=== PATIENT | male | born 1945 | race Caucasian/White ===

== ENCOUNTER → 2020-02-23 08:19 | Outpatient (CLI) | payer MEDICARE, OTHER, SELFPAY ==
[2020-02-23 10:35] LABS: Blood Urea Nitrogen 18 mg/dL (9-20); Calcium 9.3 mg/dL (8.4-10.2); Carbon Dioxide 28 mmol/L (22-32); Chloride 101 mmol/L (98-107); Cholesterol 245 mg/dL (140-199); Estimated Glomerular Filt Rate > 60.0 mL/min (>60); Glucose 234 mg/dL (80-110); HDL Cholesterol 36 mg/dL (40-60); Hemoglobin A1C% w Est Avg Glu 9.9 % (4.0-6.0); LDL Cholesterol Calculated 160 mg/dL (<100); Potassium 5.1 mmol/L (3.4-5.1); Sodium 136 mmol/L (137-145); Triglycerides 244 mg/dL (35-150)
[2020-02-23 10:41] LABS: HEMOLYSIS 56 (0-50)
== END ==
PROVIDERS: Family Provider Internal Medicine; PCP Internal Medicine; Referring Provider Internal Medicine; Visit Provider Internal Medicine
DX: E11.9 Type 2 diabetes mellitus without complications (principal); E66.9 Obesity, unspecified; E78.00 Pure hypercholesterolemia, unspecified
CPT/HCPCS: 36415; 80048; 80061; 83036

== ENCOUNTER → 2020-10-09 08:50 | Outpatient (CLI) | payer MEDICARE, OTHER, SELFPAY ==
[2020-10-09 09:49] LABS: Hemoglobin A1C% w Est Avg Glu 8.2 % (4.0-6.0)
[2020-10-09 10:07] LABS: BUN Creatinine Ratio 19.4 (6-22); Blood Urea Nitrogen 18 mg/dL (9-20); Calcium 9.3 mg/dL (8.4-10.2); Carbon Dioxide 30 mmol/L (22-32); Chloride 102 mmol/L (98-107); Estimated Glomerular Filt Rate > 60.0 mL/min (>60); Glucose 140 mg/dL (80-110); HEMOLYSIS < 15 (0-50); Potassium 4.8 mmol/L (3.4-5.1); Sodium 135 mmol/L (137-145)
== END ==
PROVIDERS: Family Provider Internal Medicine; PCP Internal Medicine; Referring Provider Internal Medicine; Visit Provider Internal Medicine
DX: E11.9 Type 2 diabetes mellitus without complications (principal); E66.9 Obesity, unspecified; E78.00 Pure hypercholesterolemia, unspecified
CPT/HCPCS: 36415; 80048; 83036

== ENCOUNTER → 2020-10-16 13:07 | Outpatient (CLI) | payer MEDICARE, OTHER, SELFPAY ==
--- NOTE | 2020-10-16 | DI.RAD.S_ITS ---
PROCEDURE: XR CHEST 2V INDICATIONS: COUGH TECHNIQUE: 2 views of the chest were acquired. COMPARISON: None. FINDINGS: Surgical changes and devices: None. Lungs and pleura: Lungs are clear. No pleural effusions or pneumothorax. Mediastinum: Mediastinal contours are normal. Heart size is normal. Bones and chest wall: No suspicious bony abnormalities. Soft tissues appear unremarkable. IMPRESSION: Normal for age. Source of cough is not found. Dictated by: Nile Joshi M.D. on 10/16/2020 at 13:40 Approved by: Nile Joshi M.D. on 10/16/2020 at 13:40
== END ==
PROVIDERS: Family Provider Internal Medicine; PCP Internal Medicine; Referring Provider Internal Medicine; Visit Provider Internal Medicine
DX: R05 Cough (principal)
CPT/HCPCS: 71046

== ENCOUNTER → 2023-03-18 12:21 | Outpatient (CLI) | payer MEDICARE, OTHER, SELFPAY ==
--- NOTE | 2023-03-18 12:23 | DI.RAD.S_ITS ---
PROCEDURE: XR ANKLE LT MIN 3V INDICATIONS: swelling, discomfort medial ankle no inj, diabetic TECHNIQUE: 3 views of the ankle were acquired. COMPARISON: [facility], CR, XR FOOT LT MIN 3V, 03/18/2023, 12:36. FINDINGS: Bones: There is a questionable fracture visualized on the AP and oblique views within the distal left fibula which does not appear to extend to the lateral cortex. No other fracture or dislocation. Soft tissues: No tibiotalar joint effusion. Achilles tendon appears normal. IMPRESSION: Questionable distal fibular fracture. If further characterization is warranted, CT of the ankle could be used. Dictated by: Terri Mendoza M.D. on 03/18/2023 at 13:08 Approved by: Terri Mendoza M.D. on 03/18/2023 at 13:11
--- NOTE | 2023-03-18 12:23 | DI.RAD.S_ITS ---
PROCEDURE: XR FOOT LT MIN 3V INDICATIONS: swelling, discomfort medial ankle no inj, diabetic TECHNIQUE: 3 views of the foot were acquired. COMPARISON: None. FINDINGS: Bones: No fractures or dislocations. No suspicious bony lesions. There is plantar spurring present. Soft tissues: No tibiotalar joint effusion. Achilles tendon appears normal. IMPRESSION: Degenerative change. No acute radiographic findings. Dictated by: Terri Mendoza M.D. on 03/18/2023 at 13:06 Approved by: Terri Mendoza M.D. on 03/18/2023 at 13:07
== END ==
PROVIDERS: Family Provider Internal Medicine; PCP Physician Assistant; Referring Provider Student in an Organized Health Care Education/Training Program; Visit Provider Student in an Organized Health Care Education/Training Program
DX: M25.472 Effusion, left ankle (principal)
CPT/HCPCS: 73610; 73630

== ENCOUNTER → 2023-03-25 13:33 | Outpatient (CLI) | payer MEDICARE, OTHER, SELFPAY ==
--- NOTE | 2023-03-25 | DI.CT.S_ITS ---
PROCEDURE: CT LE LT W CON INDICATIONS: EVALUATE LEFT ANKLE FRACTURE TECHNIQUE: Noncontrast 1-1.5 mm axial sections acquired from above the tibiotalar joint to the bottom of the calcaneus, with coronal and sagittal reformats. COMPARISON: [facility], CR, XR ANKLE LT MIN 3V, 03/18/2023, 12:36. FINDINGS: Image quality: Excellent. Bones: Periarticular osteophyte formation at the tibiotalar joint. Os trigonum. No fracture or osseous lesion. Pseudoarthrosis at distal tibiofibular syndesmosis is present. Soft tissues: Grossly unremarkable IMPRESSION: 1. No fracture. 2. Osteoarthritis. Dictated by: Beverly Solis M.D. on 03/25/2023 at 15:48 Transcribed by: KATEY on 03/25/2023 at 15:50 Approved by: Beverly Solis M.D. on 03/25/2023 at 16:45
== END ==
PROVIDERS: Family Provider Internal Medicine; PCP Physician Assistant; Referring Provider Orthopaedic Surgery; Visit Provider Orthopaedic Surgery
DX: S82.892A Other fracture of left lower leg, initial encounter for closed fracture (principal); M19.072 Primary osteoarthritis, left ankle and foot
CPT/HCPCS: 73700

== ENCOUNTER → 2023-11-20 08:12 | Outpatient (CLI) | payer MEDICARE, OTHER, SELFPAY ==
[2023-11-20 08:51] LABS: Creatinine Urine Random 106.7 mg/dL
[2023-11-20 08:55] LABS: Microalbumi Creatinin Ratio Ur 5.6 ug/mg CR (<30); Microalbumin Urine Random 0.6 mg/dL (0-1.6)
[2023-11-20 09:37] LABS: Alanine Aminotransferase 21 IU/L (<50); Albumin 3.8 g/dL (3.5-5.0); Albumin Globulin Ratio 1.3 (1.0-2.8); Alkaline Phosphatase 85 U/L (38-126); BUN Creatinine Ratio 19.1 (6-22); Blood Urea Nitrogen 18 mg/dL (9-20); Carbon Dioxide 26 mmol/L (22-32); Chloride 101 mmol/L (98-107); Cholesterol 234 mg/dL (140-199); Estimated Glomerular Filt Rate > 60 mL/min (>60); Globulin 2.9 g/dL (1.7-4.1); Glucose 139 mg/dL (80-110); HDL Cholesterol 43 mg/dL (40-60); LDL Cholesterol Calculated 151 mg/dL (<100); Potassium 4.2 mmol/L (3.4-5.1); Sodium 135 mmol/L (137-145); Total Protein 6.7 g/dL (6.3-8.2); Triglycerides 201 mg/dL (35-150)
[2023-11-20 09:52] LABS: Add Manual Diff / Slide Review NO; Basophils Absolute Auto 100 /uL (0-100); Basophils Percent Auto 0.9 % (0-2); Eosinophils Absolute Auto 300 /uL (0-450); Eosinophils Percent Auto 4.2 % (2-4); Hematocrit 46.5 % (41-53); Hemoglobin 15.5 g/dL (13.5-17.5); Lymphocytes Absolute Auto 1900 /uL (1100-4500); Lymphocytes Percent Auto 28.9 % (25-40); Mean Corpuscular HGB Conc 33.4 % (30-36); Mean Corpuscular Hemoglobin 30.2 PG (26-34); Mean Corpuscular Volume 90.4 fL (80-100); Monocytes Absolute Auto 500 /uL (0-900); Monocytes Percent Auto 7.8 % (3-14); Neutrophils Absolute Auto 3900 /uL (1500-7000); Neutrophils Percent Auto 58.2 % (50-75); Platelet Count 181 X10^3/uL (150-400); Red Blood Cell Count 5.14 X10^6/uL (4.5-5.9); Red Cell Distribution Width 14.1 % (11.6-14.8); White Blood Cell Count 6.6 X10^3/uL (4.5-11.0)
[2023-11-20 10:19] LABS: Hemoglobin A1C% w Est Avg Glu 7.9 % (4.0-6.0)
[2023-11-26 14:49] LABS: HEMOLYSIS 26 (0-50)
[2023-11-26 14:51] LABS: Aspartate Aminotransferase 30 IU/L (17-59)
== END ==
PROVIDERS: Family Provider Internal Medicine; PCP Family Medicine; Referring Provider Family Medicine; Visit Provider Family Medicine
DX: E11.9 Type 2 diabetes mellitus without complications (principal); I10 Essential (primary) hypertension; E78.2 Mixed hyperlipidemia
CPT/HCPCS: 36415; 80053; 80061; 82043; 82570; 83036; 85025

== ENCOUNTER → 2024-02-18 09:26 | Outpatient (CLI) | payer MEDICARE, OTHER, SELFPAY ==
[2024-02-18 11:11] LABS: Hemoglobin A1C% w Est Avg Glu 7.8 % (4.0-6.0)
[2024-02-18 11:24] LABS: BUN Creatinine Ratio 22.3 (6-22); Blood Urea Nitrogen 21 mg/dL (9-20); Calcium 8.9 mg/dL (8.4-10.2); Carbon Dioxide 31 mmol/L (22-32); Chloride 105 mmol/L (98-107); Cholesterol 112 mg/dL (140-199); Estimated Glomerular Filt Rate > 60 mL/min (>60); Glucose 139 mg/dL (80-110); HDL Cholesterol 44 mg/dL (40-60); HEMOLYSIS < 15 (0-50); LDL Cholesterol Calculated 48 mg/dL (<100); Potassium 4.4 mmol/L (3.4-5.1); Sodium 136 mmol/L (137-145); Triglycerides 98 mg/dL (35-150)
== END ==
PROVIDERS: Family Provider Internal Medicine; PCP Family Medicine; Referring Provider Family Medicine; Visit Provider Family Medicine
DX: Z00.00 Encounter for general adult medical examination without abnormal findings (principal); E11.9 Type 2 diabetes mellitus without complications; I10 Essential (primary) hypertension; E78.2 Mixed hyperlipidemia; Z78.9 Other specified health status
CPT/HCPCS: 36415; 80048; 80061; 83036

== ENCOUNTER → 2024-05-16 09:29 | Outpatient (CLI) | payer MEDICARE, OTHER, SELFPAY ==
[2024-05-16 10:03] LABS: Hemoglobin A1C% w Est Avg Glu 7.1 % (4.0-6.0)
[2024-05-16 10:22] LABS: BUN Creatinine Ratio 19.4 (6-22); Blood Urea Nitrogen 19 mg/dL (9-20); Carbon Dioxide 30 mmol/L (22-32); Chloride 106 mmol/L (98-107); Estimated Glomerular Filt Rate > 60 mL/min (>60); Glucose 150 mg/dL (80-110); HEMOLYSIS < 15 (0-50); Potassium 4.9 mmol/L (3.4-5.1); Sodium 136 mmol/L (137-145)
[2024-05-16 10:53] LABS: TSH w/ Reflex to FT4 3.23 uIU/mL (0.47-4.68)
== END ==
PROVIDERS: Family Provider Internal Medicine; PCP Family Medicine; Referring Provider Family Medicine; Visit Provider Family Medicine
DX: I10 Essential (primary) hypertension (principal); E11.9 Type 2 diabetes mellitus without complications; R53.82 Chronic fatigue, unspecified
CPT/HCPCS: 36415; 80048; 83036; 84443

== ENCOUNTER → 2024-05-29 13:38 | Outpatient (CLI) | payer MEDICARE, OTHER, SELFPAY ==
--- NOTE | 2024-05-29 13:40 | DI.US.S_ITS ---
PROCEDURE: US CAROTID DOPPLER BI INDICATIONS: dizziness with exercise TECHNIQUE: Color and pulse Doppler interrogation was performed of both carotid systems, with image documentation and velocity measurements. COMPARISON: None. FINDINGS: Stenosis calculations are based on SRU (Society of Radiologists in Ultrasound) criteria. The flow velocities and the arterial waveforms are normal within both carotid arterial systems. Atherosclerotic plaque is seen on both sides. The estimated degree of internal carotid artery stenosis is less than 50%. Antegrade flow is confirmed within both vertebral arteries. This study is limited by body habitus. IMPRESSION: No hemodynamically significant stenosis is seen. Atherosclerotic plaque is noted bilaterally. Dictated by: Lamin Avelar M.D. on 05/29/2024 at 15:51 Approved by: Lamin Avelar M.D. on 05/29/2024 at 15:51
== END ==
LOC: US 13:40
PROVIDERS: Family Provider Internal Medicine; PCP Family Medicine; Referring Provider Family Medicine; Visit Provider Family Medicine
DX: I65.23 Occlusion and stenosis of bilateral carotid arteries (principal); R42 Dizziness and giddiness; E78.2 Mixed hyperlipidemia; M79.89 Other specified soft tissue disorders; E11.9 Type 2 diabetes mellitus without complications
CPT/HCPCS: 93880

== ENCOUNTER → 2024-06-16 06:51 | Outpatient (CLI) | payer MEDICARE, OTHER, SELFPAY ==
--- NOTE | 2024-06-16 06:52 | DI.ECHO.S_ITS ---
[facility] : : [address] : : [place] : : [id number] : : Phone: [phone] Echocardiogram Report + + :Name: NOLA TAPIA Study Date: 06/16/2024 Height: 68 in : :Hospital ReadingLocation: Weight: 221 lb : : Gender: Male BSA: 2.1 m2 : :: 1945 Age: 79 yrs BP: 150/83 mmHg: :Reason For Study: LEG SWELLING : :Ordering Physician: GERBER DUNCANPerformed By: Charo De Jesus : :Referring: GERBER DUNCAN : + + Interpretation Summary Patient states shortness of breath when going up stairs. The ejection fraction is estimated to be 60-65%. Diastolic parameters suggest probable normal left ventricular diastolic function and normal filling pressures. The right ventricular systolic function is normal. The IVC is of normal diameter and collapses greater than 50% with a sniff. This suggests a low right atrial pressure of 3 mm Hg. No significant valvular abnormality. Procedure: A two-dimensional transthoracic echocardiogram with color flow and Doppler was performed. The study quality was technically adequate. There is no prior echocardiogram noted for this patient. The patient was in sinus rhythm with heart rates between 67-66 bpm during the exam. Left Ventricle: The left ventricle is normal in size and wall thickness. An intracavitary gradient is suspected. The ejection fraction is estimated to be 60-65%. There are no obvious focal wall motion abnormalities noted but poor endocardial definition reduces the sensitivity for the detection of such. Diastolic parameters suggest probable normal left ventricular diastolic function and normal filling pressures. Right Ventricle: The right ventricle is mildly dilated. The right ventricular systolic function is normal. Atria: The left atrial size is normal. Right atrial size is normal. There is no Doppler evidence for an interatrial shunt. Mitral Valve: The mitral valve is normal in structure and function. There is mild mitral regurgitation. Aortic Valve: The aortic valve is trileaflet. The aortic valve is mildly calcified. The aortic valve opens well. There is no aortic valve stenosis. No aortic regurgitation is present. Tricuspid Valve: The tricuspid valve is normal in structure and function. There is trace tricuspid regurgitation. Pulmonary artery pressures cannot be estimated because of the lack of a measurable TR jet velocity. Pulmonic Valve: The pulmonic valve leaflets are thin and pliable; valve motion is normal. There is trace pulmonic regurgitation. Great Vessels: The aortic root is normal size. The dimensions of the ascending aorta are normal. The IVC is of normal diameter and collapses greater than 50% with a sniff. This suggests a low right atrial pressure of 3 mm Hg. Pericardium/ Pleura There is no pericardial effusion. There is no pleural effusion. MMode/2D Measurements & Calculations LVIDd: 4.7 cm LVOT diam: 2.0 cm LVIDs: 2.9 cm Ao root diam: 3.4 cm FS: 37.4 % asc Aorta Diam: 3.8 cm IVSd: 1.2 cm LVPWd: 1.0 cm LV purvis. diameter/BSA (cm/m^2): 2.2 LV sys. diameter/BSA (cm/m^2): 1.4 LA A2 area: 19.6 cm2 RA long axis: 5.5 cm LA A4 area: 19.6 cm2 RA area: 16.4 cm2 LA length (vol): 6.0 cm RA vol: 42.0 ml LA vol: 54.3 ml RA : 19.7 ml/m2 LA vol index: 25.5 ml/m2 IVC diam: 1.8 cm RVD1 (basal): 4.4 cm RVD2 (mid): 3.6 cm TAPSE: 1.9 cm Doppler Measurements & Calculations Ao V2 max: 141.1 cm/sec LVOT Max Andrew: 130.5 cm/sec Ao V2 mean: 106.8 cm/sec LV V1 max P.8 mmHg Ao max P.0 mmHg LV V1 VTI: 30.0 cm Ao mean P.9 mmHg TIFFANIE(I,D): 2.8 cm2 Ao V2 VTI: 33.4 cm TIFFANIE(V,D): 2.9 cm2 sev ratio: 0.90 TIFFANIE indexed to BSA (cm^2/m^2): 1.3 MV E max andrew: 64.0 cm/sec PA V2 max: 96.8 cm/sec MV A max andrew: 75.5 cm/sec PA V2 mean: 66.1 cm/sec MV E/A: 0.85 PA mean P.9 mmHg Med Peak E' Andrew: 4.4 cm/sec PA pr(Accel): 41.3 mmHg E/E' med: 14.4 Lat Peak E' Andrew: 5.5 cm/sec E/E' lat: 11.6 E/e' average: 13.0 MV dec time: 0.25 sec SVLVOT): 93.0 ml Reading Physician:CADEN
== END ==
PROVIDERS: Family Provider Internal Medicine; PCP Family Medicine; Referring Provider Family Medicine; Visit Provider Family Medicine
DX: I34.0 Nonrheumatic mitral (valve) insufficiency (principal); R42 Dizziness and giddiness; E78.2 Mixed hyperlipidemia; M79.89 Other specified soft tissue disorders; E11.9 Type 2 diabetes mellitus without complications
CPT/HCPCS: 93306

== ENCOUNTER → 2024-08-22 13:03 | Outpatient (CLI) | payer MEDICARE, OTHER, SELFPAY ==
[2024-08-22 14:42] LABS: Hemoglobin A1C% w Est Avg Glu 6.9 % (4.0-6.0)
== END ==
PROVIDERS: Family Provider Internal Medicine; PCP Family Medicine; Referring Provider Family Medicine; Visit Provider Family Medicine
DX: E11.9 Type 2 diabetes mellitus without complications (principal)
CPT/HCPCS: 36415; 83036

== ENCOUNTER → 2024-11-24 09:32 | Outpatient (CLI) | payer MEDICARE, OTHER, SELFPAY ==
[2024-11-24 10:01] LABS: Hematocrit 45.8 % (41-53); Hemoglobin 15.1 g/dL (13.5-17.5); Mean Corpuscular HGB Conc 32.9 % (30-36); Mean Corpuscular Hemoglobin 30.1 PG (26-34); Mean Corpuscular Volume 91.4 fL (80-100); Platelet Count 191 X10^3/uL (150-400); Red Blood Cell Count 5.01 X10^6/uL (4.5-5.9); Red Cell Distribution Width 14.3 % (11.6-14.8); White Blood Cell Count 5.9 X10^3/uL (4.5-11.0)
[2024-11-24 10:09] LABS: Hemoglobin A1C% w Est Avg Glu 7.3 % (4.0-6.0)
[2024-11-24 10:13] LABS: Alanine Aminotransferase 24 IU/L (<50); Albumin 3.9 g/dL (3.5-5.0); Albumin Globulin Ratio 1.6 (1.0-2.8); Alkaline Phosphatase 87 U/L (38-126); Aspartate Aminotransferase 23 IU/L (17-59); BUN Creatinine Ratio 24.5 (6-22); Bilirubin Total 0.8 mg/dL (0.2-1.3); Blood Urea Nitrogen 24 mg/dL (9-20); Calcium 9.3 mg/dL (8.4-10.2); Carbon Dioxide 28 mmol/L (22-32); Chloride 102 mmol/L (98-107); Estimated Glomerular Filt Rate > 60 mL/min (>60); Globulin 2.4 g/dL (1.7-4.1); Glucose 196 mg/dL (80-110); HEMOLYSIS < 15 (0-50); Potassium 4.6 mmol/L (3.4-5.1); Sodium 134 mmol/L (137-145); Total Protein 6.3 g/dL (6.3-8.2)
== END ==
PROVIDERS: Family Provider Internal Medicine; PCP Family Medicine; Referring Provider Family Medicine; Visit Provider Family Medicine
DX: I87.2 Venous insufficiency (chronic) (peripheral) (principal); E11.9 Type 2 diabetes mellitus without complications; I10 Essential (primary) hypertension; E78.2 Mixed hyperlipidemia
CPT/HCPCS: 36415; 80053; 83036; 85027

== ENCOUNTER 2024-11-25 14:28 | Emergency (ER) | payer MEDICARE, OTHER, SELFPAY ==
[2024-11-25 14:34] VITALS: BP 179/85; PULSE 73; RESP 18; TEMP 36.3; O2SAT 99; BMI 34.4
--- NOTE | 2024-11-25 14:44 | DI.RAD.S_ITS ---
PROCEDURE: XR HAND RT MIN 3V INDICATIONS: fall/pain TECHNIQUE: 3 views of the hand(s) acquired. COMPARISON: None. FINDINGS: Bones: Advanced degenerative changes of the base of the thumb, carpal bones, and radiocarpal joint. Moderate degenerative changes also seen of the interphalangeal joints and MCPs. Subchondral lucencies are present, which may represent geodes versus sequelae of prior erosions. There is no definite acute displaced fracture or dislocation. Deformity also seen at the scaphoid. (scaphoid view not obtained) Soft tissues: Many periarticular bone fragments are present. In particular, there are bone fragments dorsal to the triquetrum on lateral view. IMPRESSION: Diffuse advanced arthritic changes described above. Many periarticular bone fragments are present, probably nonacute. In particular, correlate with point tenderness dorsal to the triquetrum on lateral view, as this is age-indeterminate. Age-indeterminate deformity also seen at the scaphoid, correlate with tenderness. Dictated by: Brien Peoples M.D. on 11/25/2024 at 14:43 Approved by: Brien Peoples M.D. on 11/25/2024 at 14:47
--- NOTE | 2024-11-25 14:46 | DI.CT.S_ITS ---
PROCEDURE: CT HEAD/BRAIN WO CON INDICATIONS: fall/c spine pain TECHNIQUE: Noncontrast 4.5 mm thick angled axial sections acquired from the foramen magnum to the vertex, with coronal and sagittal reformats. For radiation dose reduction, the following was used: automated exposure control, adjustment of mA and/or kV according to patient size. COMPARISON: None. FINDINGS: Image quality: Diagnostic CSF spaces: Basal cisterns are patent. Lateral ventricles are symmetric. Volume: Vascular calcifications. Periventricular white matter disease is commonly seen with chronic microangiopathy. Volume loss is present. These findings are moderate Brain: No intracranial hemorrhage. Casas-white differentiation is grossly maintained. Craniofacial structures: Mild paranasal sinus mucosal thickening. Empty sella. IMPRESSION: No acute intracranial hemorrhage. Dictated by: Brien Peoples M.D. on 11/25/2024 at 14:47 Approved by: Brien Peoples M.D. on 11/25/2024 at 14:48
--- NOTE | 2024-11-25 14:46 | DI.CT.S_ITS ---
PROCEDURE: CT CERVICAL SPINE WO CON INDICATIONS: fall/c spine pain TECHNIQUE: Noncontrast 3 mm thick sections acquired from the skull base to the T4 level. Sagittal and coronal reformats were then constructed. For radiation dose reduction, the following was used: automated exposure control, adjustment of mA and/or kV according to patient size. COMPARISON: None. FINDINGS: Image quality: Diagnostic Bones: Straightening of the normal cervical lordosis. There are bridging osteophytes seen in the lower cervical spine and upper thoracic spine. Overall moderate spondylosis. No acute vertebral body height loss or definite traumatic subluxation. Soft tissues: No apical pneumothorax. No pathologic prevertebral soft tissue swelling. IMPRESSION: No displaced fracture or traumatic subluxation. Moderate degenerative changes If there is high concern for further derangement, consider MRI evaluation. Dictated by: Brien Peoples M.D. on 11/25/2024 at 14:49 Approved by: Brien Peoples M.D. on 11/25/2024 at 14:50
--- NOTE | 2024-11-25 15:00 | DI.CT.S_ITS ---
PROCEDURE: CT FACIAL BONES WO CON INDICATIONS: Fall TECHNIQUE: Noncontrast 2.5 mm thick axial images acquired from the mandible through the frontal sinuses, with coronal and sagittal reformatting. For radiation dose reduction, the following was used: automated exposure control, adjustment of mA and/or kV according to patient size. COMPARISON: None. FINDINGS: Image quality: Diagnostic Bones: The pterygoid plates appear intact. No displaced mandible fracture. The zygomatic arches appear intact. Questionable slight angulation of the nasal bone. There is slight leftward nasal septum deviation. The orbital christensen appear intact. Slight deformity of right maxillary sinus is probably nonacute. No sinus hemorrhage identified. Sinuses and mastoids: Mild paranasal sinus mucosal thickening. No significant mastoid effusion. Sequelae of dental disease. Soft tissues: Lens replacements. Nonspecific small subcutaneous density seen along the face and scalp. Vascular calcifications. Brain: Separately dictated IMPRESSION: Possible slight angulation of the nasal bone, no significant edema, correlate with location of injury. Otherwise, no significant acute facial injury identified. Slight deformity of right maxillary sinus is probably nonacute. No sinus hemorrhage identified. Dictated by: Brien Peoples M.D. on 11/25/2024 at 14:50 Approved by: Brien Peoples M.D. on 11/25/2024 at 14:54
--- NOTE | 2024-11-25 15:05 | ED_ITS ---
HPI - Fall <Carol Delaney PA-C - Last Filed: 11/25/24 17:46> General Chief Complaint: Fall Stated Complaint: fall, nose injury Time Seen by Provider: 11/25/24 15:06 Source: patient Mode of arrival: Wheelchair History of Present Illness HPI Narrative: 79-year-old male presents with his for a mechanical fall that happened about 1 hour ago prior to arrival at around 2:00 p.m. He was out at his house he lost his footing and landed face forward impacting his nose on the concrete. He states there were no precipitating events, he was able to get up right away on his own and come inside the house. He is mainly complaining of nose pain and swelling, some scratches to his hands, and some neck discomfort was endorsed it triaged so a rigid cervical collar was placed at the time. Again he is denying any vision changes, lightheadedness, chest pain, shortness of breath, vertiginous symptoms or dizziness, he does wear prescription glasses. He also denied any bleeding from the inside of his nose. He also reports that his tetanus was updated about 5 years ago. All other systems are reviewed and are negative. Related Data Previous Rx's Medication Instructions Recorded glipizide 2.5 mg tablet, extended 2.5 mg PO DAILY diabetes #90 tabs 11/24/24 release 24 hr metformin 500 mg tablet,extended 500 mg PO DAILY #90 tabs 11/24/24 release 24 hr pioglitazone 15 mg tablet 15 mg PO DAILY #90 tabs 11/24/24 rosuvastatin 20 mg tablet 20 mg PO DAILY cholesterol #90 tabs 11/24/24 triamcinolone acetonide 0.1 % 1 applic topical BID PRN rash #80 11/24/24 topical cream grams Allergies Allergy/AdvReac Type Severity Reaction Status Date / Time No Known Drug Allergies Allergy Unverified 11/24/24 08:52 Review of Systems <Carol Delaney PA-C - Last Filed: 11/25/24 17:46> Review of Systems Narrative: All other systems reviewed and are negative. Patient History <Carol Delaney PA-C - Last Filed: 11/25/24 17:46> Medical History Stasis dermatitis POLST (Physician Orders for Life-Sustaining Treatment) Encounter for subsequent annual wellness visit (AWV) in Medicare patient Benign essential HTN Mixed hyperlipidemia Type 2 diabetes mellitus without complication, with no history of insulin use Vision disorder Hearing decreased Diabetes mellitus Surgical History Anesthesia History of varicose vein stripping (~1984) Status post trigger finger release (~2017) Family History Father History of heart disease Brother History of heart disease Prostate disease Brother History of heart disease Prostate disease Sister Dementia Social History Smoking Status: Never smoker Smoking Status: Never smoker Exam <Carol Delaney PA-C - Last Filed: 11/25/24 17:46> Initial Vital Signs Initial Vital Signs: Vital Signs Temperature 97.3 F L 11/25/24 14:34 Pulse Rate 73 11/25/24 14:34 Respiratory Rate 18 11/25/24 14:34 Blood Pressure 179/85 H 11/25/24 14:34 Pulse Oximetry 99 11/25/24 14:34 Oxygen Delivery Method Room Air 11/25/24 14:34 Vital signs reviewed and are normal except for elevated BP reading in a known hypertension patient. Const Other: Smiling, pleasantly conversing, no obvious distress. Work of breathing is normal. Prescription glasses are worn. HENMT Head: normocephalic, abrasion (Bridge of nose tip of nose), No Dominguez's sign, No contusion, No hematoma, No laceration, No occipital foramen tenderness and No palpable skull fracture Ears: external ears normal, TM's normal bilaterally and EAC's normal Nose: septum normal, No epistaxis, external nose abnormal (Abrasion bridge 1cm of nose and tip of nose 2cm) and No nasal discharge Face and sinus: normal facial exam, sinuses nontender and face symmetric Mouth: oral mucosae normal, tongue normal and oropharynx normal Teeth and gingiva: dentition normal and gingiva normal Throat: posterior oropharynx normal HENMT Other: No bleeding points within the nose, no clots, no hemotympanum. Eyes General: Yes appearance normal, both eyes and all related structures Visual Glez: normal visual glez by confrontation Alignment and Position: alignment normal and position normal Periorbital: periorbital findings normal Eyelids: eyelids normal Conjunctivae: conjunctivae normal Sclera: sclerae normal Pupils: PERRL EOM: EOM intact bilaterally Neck Neck: normal visual inspection Other: His neck was reexamined following a negative CT scan. He does have full range of motion, no focal bony midline tenderness or interspace tenderness, a little sore in the paraspinous tissues but no guarding, no swelling, skin is intact. Chest Chest: normal inspection of the chest Resp Effort & Inspection: normal respiratory effort Auscultation: clear to auscultation bilaterally, no rales, no rhonchi and no wheezes Cardio Rate: regular rate Rhythm: regular rhythm GI Inspection: normal to inspection Palpation: soft and no hepatosplenomegaly Back/Spine/Pelvis Thoracic/Lumbar Spine: thoracic and lumbar spine normal to inspection Sacroiliac Joints: nontender Skin Trauma: abrasion (Left dorsolateral pinky, right dorsal hand) Neuro General: patient alert, patient awake and patient oriented x3 Cranial Nerves: CN's II-XI intact bilaterally Extrem Right upper extremity: hand Details: normal to inspection and tenderness (Mild snuffbox tenderness, dorsal proximal thumb tender. Full active ROM ) Other: Noted scars to more aspect right hand previous Dupuytren's contracture surgery middle, ring, pinky fingers. Otherwise full active range of motion. Radial ulnar and median nerves are grossly intact bilaterally. Pinch mechanism is preserved. No issues identified with the wrist, forearm, elbow, shoulders. Ambulatory, no complaints below the waist. Atraumatic. <Sukhdeep Cuellar DO - Last Filed: 11/25/24 17:54> Initial Vital Signs Initial Vital Signs: Vital Signs Temperature 97.3 F L 11/25/24 14:34 Pulse Rate 73 11/25/24 14:34 Respiratory Rate 18 11/25/24 14:34 Blood Pressure 179/85 H 11/25/24 14:34 Pulse Oximetry 99 11/25/24 14:34 Oxygen Delivery Method Room Air 11/25/24 14:34 Scores <BERENICE Hickey-C - Last Filed: 11/25/24 17:46> Nexus Score for C-Spine Citation:: He endorsed cervical tenderness at triaged, rigid cervical collar was placed. There were no precipitating events, no distracting injuries, no EtOH, no loss consciousness, no blood thinners. CT of brain, cervical spine and facial bones performed. Course <Carol Delaney PA-C - Last Filed: 11/25/24 17:46> Orders Ordered: ED Orders 11/25/24 14:44 XR hand RT min 3V Stat 11/25/24 14:46 CT cervical spine wo con Stat CT head/brain wo con Stat 11/25/24 15:00 CT facial bones wo con Stat Discontinued Medications Bacitracin (Bacitracin Oint 0.9 Gm Pckt) 1 applic TOP NOW ONE Stop: 11/25/24 16:34 Last Admin: 11/25/24 16:37 Dose: 1 applic Documented By: RB Vital Signs Vital signs: Vital Signs - 8 hr 11/25/24 14:34 11/25/24 16:37 Temperature 97.3 F L 97.9 F Pulse Rate 73 80 Respiratory Rate 18 20 Blood Pressure 179/85 H 168/76 H Pulse Oximetry 99 97 Oxygen Delivery Method Room Air Room Air <Sukhdeep Cuellar DO - Last Filed: 11/25/24 17:54> Orders Ordered: ED Orders 11/25/24 14:44 XR hand RT min 3V Stat 11/25/24 14:46 CT cervical spine wo con Stat CT head/brain wo con Stat 11/25/24 15:00 CT facial bones wo con Stat Discontinued Medications Bacitracin (Bacitracin Oint 0.9 Gm Pckt) 1 applic TOP NOW ONE Stop: 11/25/24 16:34 Last Admin: 11/25/24 16:37 Dose: 1 applic Documented By: RB Vital Signs Vital signs: Vital Signs - 8 hr 11/25/24 14:34 11/25/24 16:37 Temperature 97.3 F L 97.9 F Pulse Rate 73 80 Respiratory Rate 18 20 Blood Pressure 179/85 H 168/76 H Pulse Oximetry 99 97 Oxygen Delivery Method Room Air Room Air MDM - Fall <Carol Delaney PA-C - Last Filed: 11/25/24 17:46> Imaging Data Extremity x-ray #1: My Impression: Deferred to radiologist's interpretation below. Radiologist's Impression: INDICATIONS: fall/pain TECHNIQUE: 3 views of the hand(s) acquired. COMPARISON: None. FINDINGS: Bones: Advanced degenerative changes of the base of the thumb, carpal bones, and radiocarpal joint. Moderate degenerative changes also seen of the interphalangeal joints and MCPs. Subchondral lucencies are present, which may represent geodes versus sequelae of prior erosions. There is no definite acute displaced fracture or dislocation. Deformity also seen at the scaphoid. (scaphoid view not obtained) Soft tissues: Many periarticular bone fragments are present. In particular, there are bone fragments dorsal to the triquetrum on lateral view. IMPRESSION: Diffuse advanced arthritic changes described above. Many periarticular bone fragments are present, probably nonacute. In particular, correlate with point tenderness dorsal to the triquetrum on lateral view, as this is age-indeterminate. Age-indeterminate deformity also seen at the scaphoid, correlate with tenderness. Dictated by: Brien Peoples M.D. on 11/25/2024 at 14:43 Approved by: Brien Peoples M.D. on 11/25/2024 at 14:47 CT scan - head: My Impression: Deferred to radiologist's reading below. Radiologist's Impression: PROCEDURE: CT HEAD/BRAIN WO CON INDICATIONS: fall/c spine pain TECHNIQUE: Noncontrast 4.5 mm thick angled axial sections acquired from the foramen magnum to the vertex, with coronal and sagittal reformats. For radiation dose reduction, the following was used: automated exposure control, adjustment of mA and/or kV according to patient size. COMPARISON: None. FINDINGS: Image quality: Diagnostic CSF spaces: Basal cisterns are patent. Lateral ventricles are symmetric. Volume: Vascular calcifications. Periventricular white matter disease is commonly seen with chronic microangiopathy. Volume loss is present. These findings are moderate Brain: No intracranial hemorrhage. Casas-white differentiation is grossly maintained. Craniofacial structures: Mild paranasal sinus mucosal thickening. Empty sella. IMPRESSION: No acute intracranial hemorrhage. Dictated by: Brien Peoples M.D. on 11/25/2024 at 14:47 Approved by: Brien Peoples M.D. on 11/25/2024 at 14:48 CT - cervical spine: My Impression: Deferred to radiologist's reading below. Radiologist's Impression: PROCEDURE: CT CERVICAL SPINE WO CON INDICATIONS: fall/c spine pain TECHNIQUE: Noncontrast 3 mm thick sections acquired from the skull base to the T4 level. Sagittal and coronal reformats were then constructed. For radiation dose reduction, the following was used: automated exposure control, adjustment of mA and/or kV according to patient size. COMPARISON: None. FINDINGS: Image quality: Diagnostic Bones: Straightening of the normal cervical lordosis. There are bridging osteophytes seen in the lower cervical spine and upper thoracic spine. Overall moderate spondylosis. No acute vertebral body height loss or definite traumatic subluxation. Soft tissues: No apical pneumothorax. No pathologic prevertebral soft tissue swelling. IMPRESSION: No displaced fracture or traumatic subluxation. Moderate degenerative changes If there is high concern for further derangement, consider MRI evaluation. Dictated by: Brien Peoples M.D. on 11/25/2024 at 14:49 Approved by: Brien Peoples M.D. on 11/25/2024 at 14:50 CT - facial bones: My Impression: Deferred to radiologist's interpretation below. Radiologist's Impression: INDICATIONS: Fall TECHNIQUE: Noncontrast 2.5 mm thick axial images acquired from the mandible through the frontal sinuses, with coronal and sagittal reformatting. For radiation dose reduction, the following was used: automated exposure control, adjustment of mA and/or kV according to patient size. COMPARISON: None. FINDINGS: Image quality: Diagnostic Bones: The pterygoid plates appear intact. No displaced mandible fracture. The zygomatic arches appear intact. Questionable slight angulation of the nasal bone. There is slight leftward nasal septum deviation. The orbital christensen appear intact. Slight deformity of right maxillary sinus is probably nonacute. No sinus hemorr flora identified. Sinuses and mastoids: Mild paranasal sinus mucosal thickening. No significant mastoid effusion. Sequelae of dental disease. Soft tissues: Lens replacements. Nonspecific small subcutaneous density seen along the face and scalp. Vascular calcifications. Brain: Separately dictated IMPRESSION: Possible slight angulation of the nasal bone, no significant edema, correlate with location of injury. Otherwise, no significant acute facial injury identified. Slight deformity of right maxillary sinus is probably nonacute. No sinus hemorrhage identified. Dictated by: Brien Peoples M.D. on 11/25/2024 at 14:50 Approved by: Brien Peoples M.D. on 11/25/2024 at 14:54 MDM Narrative Medical decision making narrative: Ground level fall with no precipitating events, very pleasant young looking 79-year-old male with basically some abrasions and road rash involving his nose hands, his right x-ray did not show definitive fracture but due to his snuffbox pain I have opted to splint him with a Velcro thumb spica splint and have him follow up with Orthopedics. His CT brain was negative, facial bones also negative although slight leftward deviation of his septum he is nontender however with nasal examination and this could be his baseline. Radiologist also noted a maxillary sinus nonacute finding with slight deformity on the right side. Again he is completely without pain of the face nose septum. His abrasions were cleansed his tetanus is up-to-date and overall he feels well and reassured. Referral was made to orthopedist, Dr. Wetzel the on-call doctor of the day however he will see his primary and advance. Discussed wound care and red flag warning signs and to not hesitate to seek medical attention if he develops any worrisome symptoms or any new symptoms. Discussed proverbial 2 day soreness after a fall and to watch for this, we discussed the use of ice, heat, acetaminophen for pain. Discharge Plan Departure Patient Disposition: Home Clinical Impression: Sprain of metacarpophalangeal joint of right thumb, initial encounter Fall Qualifiers: Encounter type: initial encounter Qualified Code(s): W19.XXXA - Unspecified fall, initial encounter Abrasion hand Qualifiers: Encounter type: initial encounter Laterality: left Qualified Code(s): S60.512A - Abrasion of left hand, initial encounter Abrasion of nose Qualifiers: Encounter type: initial encounter Qualified Code(s): S00.31XA - Abrasion of nose, initial encounter Instructions: DI for Finger Sprain, How to Prevent Falls, DI for Abrasion Activity Restrictions/Additional Instructions: Your abrasions were cleansed with soap and water, I recommend that you clean them daily, cover them during the day or at bedtime if they are still moist. Monitor for any secondary infection such as increased redness, swelling, pain, odor or drainage. I have placed you in a thumb spica splint to guard your wrist bones against worsening injury. Your x-ray did not show a definitive fracture but there is always concern when you have pain on the radial aspect of the wrist. I would like you to follow up with your PCP who can then assist with orthopedic referral if indicated or reimaging. Please do wear the splint at bedtime, limit your activities with the right hand I know you are very active with wood working but do not do anything that causes pain. You may apply ice, Tylenol as needed for pain. You may have some soreness in your neck in the next couple of days as you did strike her head so monitor for any worsening signs. Regarding her nose there was no indication that it was broken as you are not having any pain in your facial bones also looked good however if you develop any new worrisome symptoms please do not hesitate to seek medical attention. I did list the orthopedist that was on-call today for a referral as well but again please do follow up with your PCP. Prescriptions: No Action glipizide 2.5 mg tablet extended release 24hr 2.5 mg PO DAILY Qty: 90 3RF metformin 500 mg tablet extended release 24 hr 500 mg PO DAILY Qty: 90 3RF pioglitazone 15 mg tablet 15 mg PO DAILY Qty: 90 3RF rosuvastatin 20 mg tablet 20 mg PO DAILY Qty: 90 3RF triamcinolone acetonide 0.1 % cream 1 applic topical BID PRN (Reason: rash) Qty: 80 11RF Rx Instructions: apply to affected areas for a 2 weeks if needed then stop for 1-2 weeks. can repeat as needed. Referrals: Mabel Kasper MD [Physician] - (s/p fall, right snuff box mild tenderness, painful thumb ROM. No definitive fracture on x-rays.) Ender Randolph DO [Primary Care Provider] - Stand Alone Forms: Patient Portal/API/Survey ED Sign-out <Sukhdeep Cuellar DO - Last Filed: 11/25/24 17:54> [facility] Dr Cuellar Co-Sign Statement: I was available for consultation during this patient's emergency department visit. This chart is signed by myself for administrative purposes only. I did not have direct contact with this patient during this visit. They were seen independently by the APC.
--- NOTE | 2024-11-25 16:22 | PC.NURSE ---
C-collar removed by Carol Delaney PA-c.
[2024-11-25 16:37] VITALS: BP 168/76; PULSE 80; RESP 20; TEMP 36.6; O2SAT 97
[2024-11-25] MEDS: BACITRACIN OINT 0.9 GM PCKT 1 APPLIC TOP (16:37)
== END 2024-11-25 16:42 | disposition home or self-care (01) ==
PROVIDERS: Emergency Provider Physician Assistant Medical; Family Provider Internal Medicine; PCP Family Medicine
DX: S63.641A Sprain of metacarpophalangeal joint of right thumb, initial encounter (principal); S00.31XA Abrasion of nose, initial encounter; S60.512A Abrasion of left hand, initial encounter; M54.2 Cervicalgia; W18.30XA Fall on same level, unspecified, initial encounter
CPT/HCPCS: 29125; 70450; 70486; 72125; 73130; 99283; 99284

== ENCOUNTER → 2024-12-18 06:56 | Outpatient (CLI) | payer MEDICARE, OTHER, SELFPAY ==
--- NOTE | 2024-12-18 07:20 | DI.ECHO.S_ITS ---
[facility]---------+ [facility] : : [address] : : [place] : : [id number] : : Phone: [phone] Echocardiogram Report + + :Name: NOLA TAPIA Study Date: 12/18/2024 Height: 68.5 in: :[facility] ReadingLocation: Weight: 220 lb : : Gender: Male BSA: 2.1 m2 : :: 1945 Age: 79 yrs BP: 169/97 mmHg: :Reason For Study: DYSPNEA ON EXERTION : :Ordering Physician: GERBER DUNCANPerformed By: Charo De Jesus : :Referring: GERBER DUNCAN : + + Interpretation Summary Normal LV size and systolic function. LVEF is 60-65% Intra-cavitary gradients were assessed and velocities did not exceed 2m/s. Mildly dilated RV. Normal atrial sizes. Other findings as below. When compared to TTE dated 06/16/24, no significant changes are noted. If concerns for cardiac etiology of dyspnea persists, right heart catheterization can be considered. Procedure: A two-dimensional transthoracic echocardiogram with color flow and Doppler was performed. The study quality was technically adequate. Comparison is made with the echocardiogram of 06/16/2024. The patient was in 61-68 during the exam. Left Ventricle: The left ventricle is normal in size. Left ventricular wall thickness is mildly increased. An intracavitary gradient is suspected. The ejection fraction is estimated to be 65-70%. Right Ventricle: The right ventricle is mildly dilated. The right ventricular systolic function is normal. Atria: The left atrial size is normal. Right atrial size is normal. There is no Doppler evidence for an interatrial shunt. Mitral Valve: The mitral valve leaflets appear to open well. There is mild mitral regurgitation. Aortic Valve: The aortic valve is mildly calcified. The aortic valve opens well. There is no aortic valve stenosis. No aortic regurgitation is present. Tricuspid Valve: The tricuspid valve leaflets are thin and pliable. There is mild tricuspid regurgitation. Pulmonary artery pressures cannot be estimated because of the lack of a measurable TR jet velocity. Pulmonic Valve: The pulmonic valve leaflets are thin and pliable; valve motion is normal. There is trace pulmonic regurgitation. Great Vessels: The aortic root is normal size. The ascending aorta is mildly enlarged. The IVC is of normal diameter and collapses greater than 50% with a sniff. This suggests a low right atrial pressure of 3 mm Hg. Pericardium/ Pleura There is no pericardial effusion. There is no pleural effusion. MMode/2D Measurements & Calculations LVIDd: 4.2 cm LVOT diam: 2.1 cm LVIDs: 2.7 cm Ao root diam: 3.3 cm FS: 37.6 % asc Aorta Diam: 3.9 cm EPSS: 0.39 cm Ao Arch Diam (Prox Trans): 1.7 cm IVSd: 1.3 cm LVPWd: 1.1 cm LV purvis. diameter/BSA (cm/m^2): 2.0 LV sys. diameter/BSA (cm/m^2): 1.2 LA A2 area: 20.7 cm2 RA long axis: 5.9 cm LA A4 area: 17.7 cm2 RA area: 19.3 cm2 LA length (vol): 5.9 cm RA vol: 54.2 ml LA vol: 53.0 ml RA : 25.3 ml/m2 LA vol index: 24.8 ml/m2 IVC diam: 1.8 cm RVD1 (basal): 4.5 cm TAPSE: 2.0 cm Doppler Measurements & Calculations Ao V2 max: 137.1 cm/sec LVOT Max Andrew: 107.6 cm/sec Ao V2 mean: 98.4 cm/sec LV V1 max P.6 mmHg Ao max P.5 mmHg LV V1 VTI: 27.1 cm Ao mean P.3 mmHg TIFFANIE(I,D): 2.8 cm2 Ao V2 VTI: 34.5 cm TIFFANIE(V,D): 2.8 cm2 sev ratio: 0.79 TIFFANIE indexed to BSA (cm^2/m^2): 1.3 MV E max andrew: 57.4 cm/sec PA V2 max: 95.5 cm/sec MV A max andrew: 68.5 cm/sec PA V2 mean: 65.8 cm/sec MV E/A: 0.84 PA mean P.9 mmHg Med Peak E' Andrew: 4.9 cm/sec PA pr(Accel): 34.5 mmHg E/E' med: 11.8 Lat Peak E' Andrew: 6.0 cm/sec E/E' lat: 9.6 E/e' average: 10.7 MV dec time: 0.23 sec Pulm A Revs Andrew: 24.1 cm/sec SV(LVOT): 96.8 ml Pulm A Revs Dur: 0.14 sec Reading Physician:01:11 PM
--- NOTE | 2024-12-18 22:14 | DI.NM.S_ITS ---
DATE OF SERVICE: 12/18/2024 EXERCISE TREADMILL STRESS TEST REPORT PROCEDURE: Exercise treadmill stress test without imaging. ORDERING PROVIDER: Ender Randolph DO. INDICATIONS: The patient is an 79-year-old diabetic male with hypertension, exertional dyspnea, and recent falls. FINDINGS: 1. The patient was able to exercise for 3 minutes 1 second on a standard Gm protocol suggesting moderate-severely reduced exercise capacity with an ALMA of +31%, achieving 4.6 METs. 2. He had a blunted heart rate response to exercise with a resting heart rate of 71 bpm increasing to a maximum of 91 bpm (65% of his predicted maximum). He had a normal blood pressure response. 3. He denied any chest discomfort or other anginal symptoms. He stopped because of lightheadedness and inability to keep up with the treadmill. 4. His resting ECG shows sinus rhythm with a right bundle-branch block with associated ST and T-wave abnormalities but is otherwise normal. There are no significant ST-segment shifts or arrhythmias with stress. IMPRESSION: 1. Normal exercise treadmill stress test for ischemia but with significantly reduced sensitivity because of a significantly blunted heart rate response to exercise. If there is significant clinical concern for underlying ischemic heart disease, consider a pharmacologic imaging study. 2. Moderate-severely reduced exercise capacity without angina or arrhythmias. London Milner - RS/roc/NE doc#: [id number]/job#: [id number] dd: 12/18/2024 17:02:00 dt: 12/18/2024 22:03:00 DICTATING /COPIES TO: Joesph Pryor MD; Ender Randolph DO COPIES MNE: THAIS;
== END ==
LOC: ECHO 06:57
PROVIDERS: Family Provider Internal Medicine; PCP Family Medicine; Referring Provider Family Medicine; Visit Provider Family Medicine
DX: R06.09 Other forms of dyspnea (principal); I10 Essential (primary) hypertension; I87.2 Venous insufficiency (chronic) (peripheral); E11.9 Type 2 diabetes mellitus without complications; E78.2 Mixed hyperlipidemia; Z91.81 History of falling
CPT/HCPCS: 93017; 93306

== ENCOUNTER 2025-01-10 07:19 | Day surgery (SDC) | payer MEDICARE, OTHER, SELFPAY ==
[2025-01-05 09:29] VITALS: BMI 35.2
[2025-01-10] VITALS (9 sets, daily range): BP systolic 130–163; BP diastolic 65–88; PULSE 72–89; RESP 12–21; TEMP 36.3–36.4; O2SAT 92–98; BMI 34.2
--- NOTE | 2025-01-10 06:00 | DI.RAD.S_ITS ---
PROCEDURE: XR KNEE RT 1TO2V INDICATIONS: TKA TECHNIQUE: 2 views of the knee were acquired. COMPARISON: [facility] Fertilemaki Larose, CR, XR KNEE 4+ VIEWS RIGHT, 09/08/2024, 9:37. FINDINGS AND IMPRESSION: Expected postoperative appearance of the right knee arthroplasty. Soft tissue swelling and gas are present. Patellar resurfacing and enthesopathy. Vascular calcifications. Dictated by: Brien Peoples M.D. on 01/10/2025 at 12:07 Approved by: Brien Peoples M.D. on 01/10/2025 at 12:08
--- NOTE | 2025-01-10 08:13 | PM.PREOP ---
Pre-operative Note Interval Note History & Physical reviewed/Exam performed by Physician: Yes Changes to H&P: No
--- NOTE | 2025-01-10 08:13 | PM.OP.1 ---
Operative Date/Time/Diagnoses Date of procedure: 01/10/25 Time of procedure: 09:20 Pre-op diagnosis: Right knee arthritis, BMI 35 Post-op diagnosis: same Procedure & Clinicians Procedure: Right knee replacement, robotic assisted CPT code 86516 Robotic surgical assistance [id number] Computer navigated assisted surgery [id number] Same procedure as scheduled: Yes Indications: The patient is a 79-year-old male with end-stage [id number] knee arthritis. The patient has a significant right varus knee arthritis. They have failed conservative treatment with activity modifications, injections, physical therapy and bracing. They has been indicated for total knee replacement. The risks and benefits of the procedure have been discussed with the patient even opportunity to ask questions. The risks of surgery include but are not limited to infection, malunion, nonunion, fracture, loosening, persistence of pain, damage to nerves and blood vessels, need for additional procedures, DVT, PE, cardiopulmonary complications and . The patient expressed a thorough understanding of the risks and benefits of surgery and has elected to proceed. Consent was signed in the office. During the operation the services of physician surgical services manager were medically indicated and necessary to provide the exposure of the operative site for the surgical procedure and to maintain the limb in a proper position to carry out the procedure safely and efficiently. Without a qualified assistant business manager being present this would extend the operative procedure and would have made the procedure more technically difficult to perform. The surgical services manager was medically necessary for the proper positioning, retraction and manipulation of the limb, proper exposure, and manipulation of the tissue for implantation implants and closure. Surgeon: Mabel Kasper Insulation Sprayer: Tom Rodriguez Anesthesia Type: General, Peripheral nerve block and Local Operative Notes Findings: End-stage tricompartmental knee arthritis varus pattern, right Closure Type: primary Specimen(s): none sent Prosthetic devices, grafts, tissues, transplants, or devices: Hernandez [employer] Nephew journey 2 BCS Femur cobalt chromium 7 Tibia 6 Patella 38x9 Poly 9mm Estimated Blood Loss (mL): 30 Blood products transfused: none Tourniquet time (min): 87 Procedure in detail: Patient was seen in the preoperative area where the patient and site of surgery were identified in the operative knee was marked informed consent confirmed. This was the right knee. Patient received the appropriate preoperative antibiotics this was 2 g of Ancef. And other preoperative medications and was taken to the operating room placed on operating table in the supine position. Spinal anesthetic were administered. The operative extremity was then prepped and draped in the standard sterile fashion with a nonsterile tourniquet high on the thigh. Patient was placed on the green foam bolsters. A lateral post was placed at the level of the proximal thigh /trochanter area as a lateral post. Formal time-out procedure was performed confirming the patient's side and site of surgery and administration of appropriate preoperative antibiotics and implants were in the room accounted for. All were in agreement. Patient received a preoperative dose of tranexamic acid and then a 2nd dose at tourniquet release Patient was prepped and draped in the standard sterile fashion and the foot was placed into the leg jackson. This was taken into high flexion and the incision was marked out over the anterior knee to the level of the medial tubercle tubercle. The Esmarch was then used for exsanguination and the tourniquet was inflated to 250 mmHg. Was made through the skin and subcutaneous tissue in high flexion this was then brought down into 30? of flexion for the medial parapatellar arthrotomy. A marker pen was used to isidra the arthrotomy site for later repair. Joint fluid was evacuated. The anterior osteophytes and soft tissues were removed. Routine medial release was initially made along the medial proximal tibia with Bovie. The patella was 1st cut using the saw sized and prepped and then subluxed throughout the case and protected. The leg was then taken into extension and the patella was everted and the patella was cut to accommodate the patellar button. This was sized to a 38mm button for a 9mm thickness to recreate the original dimensions of the patella. Poly was removed and the protector replaced and the patella was subluxed and the knee was taken back up into flexion and attention was returned to the femur. Then the rotational landmarks of Whitesides line and the trans epicondylar axis were marked on the femur with electrocautery. ACL and PCL were released. Then the Cori robotic pins were placed into the femur and tibia and the race set up. Landmarks were established and the robotic planning was commenced. Plan was developed and improved and adjusted as necessary to create a balanced knee. Initial alignment was measured at 6 varus using robotic assistance. Planned postoperative alignment was corrected to 3 varus For balancing 2? of varus was placed in the tibia 1 degree of varus in the distal femur. 5? of external rotation in the distal femur in 3? of flexion. Knee was balanced 1-2 mm in flexion and extension Then in extension the posterior capsule was injected with a mixture of 40 mL of 0.25% Marcaine and 20 mL of Exparel care to avoid excessive injection posterior laterally. The remainder of this was saved for the capsule and subcutaneous tissue and placed during cement curing. Plan was satisfactory the bur was used to remove the distal femur then the 5 in 1 cutting block was applied complete the femur cuts. Attention was then turned to the tibia and the tibial resection was made in accordance with the robotic planning. The knee was a little tight with the trial blocks therefore 1 more mm was taken off the tibia using the bur all future and robotic guidance. The trials were placed. And the femoral notch was cut a standard fashion using Reamer then slap hammer. The knee was trialed and the checked. Knee was balanced in flexion extension. Range of motion 0-135 degrees was obtained. The rotation femoral trial was marked Bovie on the bone and checked with a long dmo. The tibia was then finished with a drill and flange cut and then The trial implants were removed. The wound and bone was irrigated with pulsatile lavage. This was then dried with a sponge. The components were verified and opened and the cement was mixed. Cement was applied to the components and then to the bone then the tibia was cemented in place 1st followed by the femur then the patella. Excess cement was removed. With care looking around the back of the knee. Remainder of the injection was injected around the capsule. trial poly was placed back in the leg was placed into extension for the patellar cementing. After this was cured approximately 15 minutes later and the dilute Betadine solution was placed for at least 3 minutes in the wound this was then irrigated out and the final poly was placed. This was a 9 mm poly. The tourniquet was released hemostasis was achieved. Final 1g of tranexamic acid was given IV at the time of tourniquet release. The capsule was closed with 1. Ethibond suture. Followed by a running Quill stitch. Subcutaneous layer was closed with 3-0 Vicryl suture. Skin was closed with a running V lock suture Stratafix Monocryl type suture and Dermabond. An Aquacel dressing was placed . An Adonay wrap was applied. Anesthetic was terminated the patient was woken from anesthesia and taken to recovery room in good condition. There no immediate complications from this procedure. The patient will be maintained on a standard total knee replacement protocol with weight-bearing as tolerated. Complications: none Post-operative Condition: stable Disposition: PACU Plan for aftercare: Standard total knee postoperative precautions. Weightbear as tolerated. Immediate range of motion. Commence physical therapy within 1 week. Aspirin 81 mg b.i.d. enteric coated for DVT prophylaxis x6 weeks postop. Follow up in Orthopedic Clinic in 2 weeks.
[2025-01-10] MEDS: LACTATED RINGERS 1,000 ML 42 ML IV (08:18)
[2025-01-10] MEDS: ACETAMINOPHEN 325 MG TABLET 975 MG PO (08:18)
[2025-01-10] MEDS: CELECOXIB 200 MG CAPSULE 400 MG PO (08:19)
--- NOTE | 2025-01-10 08:45 | SUR.PREOP ---
Time out called 8:37am. Block start time [8:42am] . Monitoring initiated and maintained throughout procedure. Oxygen and medications given per anesthesiologist instructions. Patient remained stable throughout procedure, no adverse reactions noted. Block end time [8:45am].
--- NOTE | 2025-01-10 08:53 | SUR.OPER ---
Supine on padded OR bed. Pillow under head, arms secured on padded armboards <90 degree abduction. Safety belt across torso. Non-operative leg secured with tape over blanket over lower leg. Operative leg secured in DeMayo/Sergio/Nathe positioner. Foam padded brace at thigh of operative leg.
[2025-01-10] MEDS: TRANEXAMIC ACID 1,000 MG VIAL 1000 MG INJ ×2 (09:00→11:00)
[2025-01-10] MEDS: CEFAZOLIN 2 GM/100 ML PREMIX 100 ML IV (09:10)
[2025-01-10] MEDS: BUPIVACAINE LIPOSOME 266 MG/20 ML VIAL INJ (09:40)
[2025-01-10] MEDS: BUPIVACAINE 0.25% (PF) 60 ML, EPINEPHrine 0.3 MG INJ (09:40)
--- NOTE | 2025-01-10 13:19 | SUR.PHASEII ---
Handoff report from CADEN Champion. Pt assessed at bedside. Spinal dermatome at level of patella. Lunch delivered. Pt denies pain or needs at this time. Call light in reach. Bed low and locked. at bedside.
--- NOTE | 2025-01-10 14:10 | PT.IIE ---
Current Diagnoses Bilateral primary osteoarthritis of knee (01/10/25) Unilateral primary osteoarthritis, right knee (01/10/25) Other specified joint disorders, unspecified knee (01/10/25) Surgery Performed Operation Date: 01/10/25 08:45 Actual Procedures p Total Knee Arthroplasty - Robot(Right) - Mabel Kasper MD Surgical History (Last Updated 01/05/25 @ 10:20 by Rosita Rodriguez, RN) Anesthesia History of varicose vein stripping (~1984) Status post cataract extraction of both eyes with insertion of intraocular lens (11/2018) Status post trigger finger release (~2017) Medical History (Last Updated 01/05/25 @ 09:37 by Rosita Rodriguez, RN) Benign essential HTN Diabetes mellitus Encounter for subsequent annual wellness visit (AWV) in Medicare patient Hearing decreased Mixed hyperlipidemia POLST (Physician Orders for Life-Sustaining Treatment) Stasis dermatitis Type 2 diabetes mellitus without complication, with no history of insulin use Vision disorder Physical Therapy Inpatient Evaluation/Re-Eval M1 PT/OT-IP Prior Functional Status Start: 01/10/25 15:48 Freq: NEEDED Status: Active Protocol: Document 01/10/25 14:10 AB (Rec: 01/10/25 15:59 AB [id number]) Medical Review Prior Functional Status Medical History Reviewed Yes Communication able to make needs known Mobility and Gait spouse provided pt's PLOF and home setup spouse stated that pt was independent with all mobilities and ambulation without AD Social History Household Members spouse Living Arrangements House Number of Floors (Floors) Two Floors Number of Stairs To Enter/Railing? pt stays on main level of the house has a ramp to enter Home Environment Standard Height Toilet,Walk in Shower,Built-In Shower Seat Home Equipment Front Wheel Walker,Straight Cane,Hand Held Shower,Grab Bars In Shower M2 PT-IP Current Condition Start: 01/10/25 15:48 Freq: NEEDED Status: Active Protocol: Document 01/10/25 14:10 AB (Rec: 01/10/25 15:59 AB [id number]) Physical Therapy Current Condition Current Condition Evaluation Date 01/10/25 Treatment Diagnosis s/p R TKA; difficulty in walking Onset Date 01/10/25 M3 PT-IP Subjective Start: 01/10/25 15:48 Freq: NEEDED Status: Active Protocol: Document 01/10/25 14:10 AB (Rec: 01/10/25 15:59 AB [id number]) Subjective Physical Therapy Visit Type Type Initial Evaluation Visit Start Time 14:10 Visit Stop Time 14:50 Number of GRINDER SET UP OPERATOR THREAD Visits 0 Physical Therapy Visit Comments Patient Comments agreeable to do PT Therapy Pain Assessment Pain When Pain Assessed At Rest Pain Present Pain Present Pain Reported Location Right Knee Intensity 1 Scale Used increases to 2/10 with mobility Pain Management Techniques Distraction,Modification of Treatment,Re-positioning M4 PT-IP Mobility and Gait Start: 01/10/25 15:48 Freq: NEEDED Status: Active Protocol: Document 01/10/25 14:10 AB (Rec: 01/10/25 15:59 AB [id number]) PT-Bed Mobility Assessment Supine to Sit Supine to Sit Standby Assistance Sit to Supine Sit to Supine Standby Assistance PT-Transfer Assessment Sit to and From Stand Sit to and from Stand Contact Guard Assistance,1 Person Assistance,Use of Upper Extremities Equipment Transfer Assistive Device Gait Belt,Front Wheeled Walker Orthotic/Prosthetic Devices or Brace: No Comments Mobility Comments pt seen in PACU. pt using the toilet with nurse assisting. talked with pt's spouse and obtained PLOF and home set up. pt ambulated from the toilet to the EOB using FWW CGA. post-op folder provided and reviewed contents with pts. pt with still RLE numbness but able to control RLE. pt completed sit<>supine SBA. sit to stand from EOB CGA and ambulated in room using fWW ~ 30ft CGA and cues. cued for R quads activation. pt sat back on EOB. caregiver training conducted. educated spouse on how to use safety belt and how to assist pt. spouse was able to put safety belt on and assisted pt with sit to stand. pt ambulated ~ 100 ft using fWW and spouse assisting. pt sat back on EOB. pt and spouse without further concerns. Left pt with nurse. Gait Assessment Gait Gait Assistance Required: Contact Guard Assist Distance (Feet) 100 Able to Maintain Weight Bearing Status Yes During Gait Assistive Devices Assistive Device Gait Belt,Front Wheeled Walker Orthotic/Prosthetic Devices or Brace: No Gait Deviations General Gait Pattern Antalgic,Decreased Stride Length,Decreased Feet Clearance Factors Limiting Gait Function Factors Limiting Gait Function Decreased Activity Tolerance, Decreased Strength,Limited Range of Motion,Pain,Poor Balance,Poor Safety Awareness PT-Balance Assessment Sitting Balance and Reactions Static Sitting Balance Ability Normal Dynamic Sitting Balance Ability Good Standing Balance and Reactions Static Standing Balance Ability Good Dynamic Standing Balance Ability Fair Device Used FWW M5 PT-IP Objective Assessments Start: 01/10/25 15:48 Freq: NEEDED Status: Active Protocol: Document 01/10/25 14:10 AB (Rec: 01/10/25 15:59 AB [id number]) Orientation Orientation/Cognition Level of Alertness Alert Orientation Name,Place,Situation Language Function Ability Hard of Hearing Safety Awareness Decreased Safety Awareness Memory Description No Deficits Noted Strength Lower Extremity Strength Assessment Right Impaired Knee 4-/5 Sensation Assessment Sensation Gross Sensation Right LE Impaired Sensation Description Numbness Comments Sensation Comments RLE numbness Muscle Tone Muscle Tone WNL Yes M6 PT-IP Treatment Start: 01/10/25 15:48 Freq: NEEDED Status: Active Protocol: Document 01/10/25 14:10 AB (Rec: 01/10/25 15:59 AB [id number]) Physical Therapy Treatment Education Education Provided Precautions,Weight Bearing Status,Post-Op Packet,Safety M7 PT-IP Assessment and Plan Start: 01/10/25 15:48 Freq: NEEDED Status: Active Protocol: Document 01/10/25 14:10 AB (Rec: 01/10/25 15:59 AB [id number]) PT Summary Assessment and Plan Potential Rehabilitation Potential Good Status of Condition at Evaluation Stable Summary Impairments Pain,ROM,Strength,Balance, Coordination,Sensation,Tone, Cognition,Bed Mobility, Transfers,Gait,Activity Tolerance Assessment Summary pt is an 79 y/o M s/p R TKA POD 0. pt is WBAT on RLE. pt was seen in PACU and planning to d/c afterwards. pt requiring CGA with mobility. caregiver training conducted and spouse was able to assist pt. Goals Bed Mobility Goal Independent Transfer Goal Independent,Front Wheeled Walker Gait Goal Independent,Front Wheel Walker Gait Distance 200 Days to Meet Goals 3 Frequency of Treatment Frequency Of Treatment Twice a Day Treatment Plan Physical Therapy Treatment Plan Bed Mobility Training,Transfer Training,Gait Training, Therapeutic Exercise,Balance Retraining,Post Op Education, Discharge Planning,Hot or Cold Pack,Neuromuscular Re-ed, Coordination Retraining,Manual Therapy Weight Bearing Status Weight Bearing Status Weight Bear as Tolerated Allowed Weight Bearing Amount (enter % RLE WBAT or #) (%) Recommendations To Nursing Amount of Assist Needed 1 Person Assist Discharge Recommendations PT Discharge Recommendations Home with Assistance, Outpatient PT Transportation Needs at Discharge Private Vehicle
[2025-01-10] MEDS: TAMSULOSIN 0.4 MG CAPSULE PO (15:23)
== END 2025-01-10 15:36 | disposition home or self-care (01) ==
LOC: OR 07:35 → AC 15:24
PROVIDERS: Family Provider Internal Medicine; PCP Family Medicine; Referring Provider Orthopaedic Surgery Foot and Ankle Surgery; Visit Provider Orthopaedic Surgery Foot and Ankle Surgery
PROC: 0SRC0JZ Replacement of Right Knee Joint with Synthetic Substitute, Open Approach (ICD-10-PCS; CPT 27447; principal; 2025-01-10 08:45)
DX: M17.11 Unilateral primary osteoarthritis, right knee (principal); G89.18 Other acute postprocedural pain; M21.161 Varus deformity, not elsewhere classified, right knee; M25.761 Osteophyte, right knee; E11.9 Type 2 diabetes mellitus without complications; Z79.84 Long term (current) use of oral hypoglycemic drugs
CPT/HCPCS: 27447; 64450; 73560; 82962; 97161; 97530; C1776; C1713; J0171; J0666; J0690; J1885; J2405; J2704

== ENCOUNTER → 2025-04-27 10:55 | Outpatient (CLI) | payer MEDICARE, OTHER, SELFPAY ==
[2025-04-27 11:30] LABS: Add Manual Diff / Slide Review NO; Basophils Absolute Auto 100 /uL (0-100); Basophils Percent Auto 1.2 % (0-2); Eosinophils Absolute Auto 200 /uL (0-450); Eosinophils Percent Auto 3.1 % (2-4); Hematocrit 43.7 % (41-53); Hemoglobin 14.4 g/dL (13.5-17.5); Lymphocytes Absolute Auto 1400 /uL (1100-4500); Lymphocytes Percent Auto 25.4 % (25-40); Mean Corpuscular HGB Conc 32.9 % (30-36); Mean Corpuscular Hemoglobin 29.3 PG (26-34); Mean Corpuscular Volume 89.2 fL (80-100); Monocytes Absolute Auto 500 /uL (0-900); Monocytes Percent Auto 9.3 % (3-14); Neutrophils Absolute Auto 3500 /uL (1500-7000); Platelet Count 202 X10^3/uL (150-400); Red Cell Distribution Width 14.8 % (11.6-14.8); White Blood Cell Count 5.7 X10^3/uL (4.5-11.0)
[2025-04-27 11:45] LABS: Albumin 4.1 g/dL (3.5-5.0); BUN Creatinine Ratio 21.3 (6-22); Blood Urea Nitrogen 19 mg/dL (9-20); Calcium 9.4 mg/dL (8.4-10.2); Carbon Dioxide 27 mmol/L (22-32); Chloride 101 mmol/L (98-107); Estimated Glomerular Filt Rate > 60 mL/min (>60); Glucose 147 mg/dL (70-99); HEMOLYSIS < 15 (0-50); Phosphorous 3.3 mg/dL (2.3-3.7); Potassium 4.7 mmol/L (3.4-5.1); Sodium 134 mmol/L (137-145)
== END ==
PROVIDERS: Family Provider Internal Medicine; PCP Family Medicine; Referring Provider Orthopaedic Surgery Foot and Ankle Surgery; Visit Provider Orthopaedic Surgery Foot and Ankle Surgery
DX: M17.11 Unilateral primary osteoarthritis, right knee (principal)
CPT/HCPCS: 36415; 80069; 85025

== ENCOUNTER → 2025-05-22 09:38 | Outpatient (CLI) | payer MEDICARE, OTHER, SELFPAY ==
[2025-05-22 10:57] LABS: Hemoglobin A1C% w Est Avg Glu 7.3 % (4.0-6.0)
== END ==
PROVIDERS: PCP Family Medicine; Referring Provider Family Medicine; Visit Provider Family Medicine
DX: E11.9 Type 2 diabetes mellitus without complications (principal)
CPT/HCPCS: 36415; 83036

== ENCOUNTER → 2025-08-24 11:34 | Outpatient (CLI) | payer MEDICARE, OTHER, SELFPAY ==
[2025-08-24 13:19] LABS: Hemoglobin A1C% w Est Avg Glu 7.6 % (4.0-6.0)
[2025-08-24 13:32] LABS: Blood Urea Nitrogen 22 mg/dL (9-20); Calcium 9.3 mg/dL (8.4-10.2); Carbon Dioxide 25 mmol/L (22-32); Chloride 101 mmol/L (98-107); Estimated Glomerular Filt Rate > 60 mL/min (>60); Glucose 137 mg/dL (70-99); HEMOLYSIS < 15 (0-50); Potassium 4.7 mmol/L (3.4-5.1); Sodium 135 mmol/L (137-145)
== END ==
LOC: LAB 11:35
PROVIDERS: PCP Family Medicine; Referring Provider Family Medicine; Visit Provider Family Medicine
DX: E11.9 Type 2 diabetes mellitus without complications (principal); I10 Essential (primary) hypertension
CPT/HCPCS: 36415; 80048; 83036